=== PATIENT | female | born 1960 | race Caucasian/White ===

== ENCOUNTER 2018-07-26 05:27 | Inpatient (IN) | payer MEDICARE, OTHER ==
[2018-07-26] MEDS ORDERED: Celecoxib 200 MG Cap PO ONE (06:00)
[2018-07-26] MEDS ORDERED: Scopolamine 1.5 MG Transdermal Patch TOP SCH (06:00)
[2018-07-26] MEDS ORDERED: Gabapentin 300 MG Cap PO ONE (06:00)
[2018-07-26] MEDS ORDERED: Acetaminophen 500 MG Tab PO ONE (06:00)
[2018-07-26] MEDS ORDERED: cefOXitin 2 GM Vial ONE (06:53)
[2018-07-26] MEDS ORDERED: Dextrose 5%-Lactated Ringers 1,000 ML IV SCH (07:00)
[2018-07-26] MEDS ORDERED: Dexamethasone 4 MG/ML SDV ONE (07:08)
[2018-07-26] MEDS ORDERED: Glycopyrrolate 0.2 MG/ML 5 ML MDV ONE (07:08)
[2018-07-26] MEDS ORDERED: Succinylcholine 200 MG/10 ML MDV ONE (07:08)
[2018-07-26] MEDS ORDERED: Neostigmine Methylsulfate 1 MG/ML 5 ML Syringe ONE (07:08)
[2018-07-26] MEDS ORDERED: fentaNYL 250 MCG/5 ML SDV ONE ×2 (07:08→07:57)
[2018-07-26] MEDS ORDERED: Propofol 200 MG/20 ML SDV ONE (07:08)
[2018-07-26] MEDS ORDERED: Ondansetron 4 MG/2 ML SDV ONE (07:08)
[2018-07-26] MEDS ORDERED: Rocuronium 50 MG/5 ML Vial ONE (07:08)
[2018-07-26] MEDS ORDERED: Lactated Ringers 1,000 ML ONE (07:11)
[2018-07-26] MEDS: cefOXitin 2 GM in Sodium Chloride 0.9% 50 ML IV ONE ×2 (07:57→11:49)
[2018-07-26] MEDS ORDERED: Ketamine 50 MG in Sodium Chloride 0.9% 49.5 ML IV SCH (08:00)
[2018-07-26] MEDS ORDERED: Lidocaine 2% 100 MG/5 ML Syringe IVPUSH SCH (08:00)
[2018-07-26] MEDS ORDERED: Ketamine 500 MG/5 ML MDV IV SCH (08:00)
[2018-07-26] MEDS ORDERED: hydrOXYzine HCl 100 MG/2 ML SDV IM ONE (09:29)
[2018-07-26] MEDS: Lidocaine 0.4%/D5W 2 GM/500 ML BAG IV SCH (09:44)
[2018-07-26] MEDS ORDERED: fentaNYL 100 MCG/2 ML SDV IVPUSH ONE (09:50)
[2018-07-26] MEDS ORDERED: Acetaminophen Soln 650 MG/20.3 ML UD Cup PO SCH (11:33)
[2018-07-26] MEDS ORDERED: Metoclopramide 10 MG/2 ML SDV IVPUSH PRN (11:33)
[2018-07-26] MEDS ORDERED: Labetalol 20 MG/4 ML Syringe IVPUSH PRN (11:33)
[2018-07-26] MEDS ORDERED: Ondansetron 4 MG/2 ML SDV IVPUSH PRN (11:33)
[2018-07-26] MEDS ORDERED: diphenhydrAMINE 50 MG/ML SDV IVPUSH PRN (11:33)
[2018-07-26] MEDS ORDERED: hydrOXYzine HCl 100 MG/2 ML SDV IM PRN (11:33)
[2018-07-26] MEDS ORDERED: hydrOXYzine HCl 100 MG/2 ML SDV ONE (11:42)
[2018-07-26] MEDS: Acetaminophen Soln 650 MG/20.3 ML UD Cup PO SCH ×3 (11:53→23:43)
[2018-07-26] MEDS ORDERED: Pantoprazole 40 MG Vial IVPUSH SCH (12:00)
[2018-07-26] MEDS: Dextrose 5%-Lactated Ringers 1,000 ML IV SCH ×2 (12:58→22:05)
[2018-07-26] MEDS: Gabapentin 250 MG/5 ML Solution ML 470 ML Bottle PO SCH ×2 (13:59→20:34)
[2018-07-26] MEDS: cefOXitin 2 GM in Sodium Chloride 0.9% 50 ML IV SCH ×2 (14:00→20:34)
[2018-07-26] MEDS ORDERED: MVI, Adult with Vitamin K 10 ML, Thiamine 200 MG, Chromium/Copper/Mang/Selen/Zn 1 ML in... IV SCH ×4 (16:00)
[2018-07-26] MEDS: Heparin Sodium 5,000 Units/ML Vial SUBCUT SCH (18:14)
[2018-07-26] MEDS: rOPINIRole 1 MG Tab PO SCH ×2 (18:18→21:25)
[2018-07-26] MEDS: Venlafaxine 75 MG Tab PO SCH (20:38)
[2018-07-26] MEDS: lamoTRIgine 25 MG Tab PO SCH (20:39)
[2018-07-26] MEDS ORDERED: traZODone 50 MG Tab PO ONE (21:00)
[2018-07-26] MEDS ORDERED: Iohexol 647 MG/ML 50 ML SDV PO SCH (23:00)
[2018-07-27] MEDS: cefOXitin 2 GM in Sodium Chloride 0.9% 50 ML IV SCH ×2 (02:43→07:58)
--- NOTE | 2018-07-27 04:06 | CRLCR ---
INDICATION: Gastric bypass evaluation TECHNIQUE: Abdominal radiograph 2 views. Patient given oral contrast with no radiologist in attendance. COMPARISON: None FINDINGS: Bowel: Oral contrast is seen within the gastrojejunostomy head proximal small bowel loops. The right flank and lower pelvis are excluded. No contrast extravasation is seen on the 2 submitted static images. Soft tissue: No evidence of pneumoperitoneum present. No suspicious calcifications noted. A surgical drain is present in the left upper quadrant. The patient is status post prior cholecystectomy. Bone: Unremarkable for age. IMPRESSION: 1. No contrast extravasation is seen on the 2 submitted static images. Dictated by Migel Banks MD @ 07/27/2018 4:05:41 AM Dictated by: Migel Banks MD @ 07/27/2018 04:05:46 (Electronically Signed)
[2018-07-27] MEDS: Dextrose 5%-Lactated Ringers 1,000 ML IV SCH (04:12)
[2018-07-27] MEDS: Heparin Sodium 5,000 Units/ML Vial SUBCUT SCH ×2 (05:42→17:30)
[2018-07-27] MEDS: Acetaminophen Soln 650 MG/20.3 ML UD Cup PO SCH ×4 (05:42→23:05)
[2018-07-27] MEDS ORDERED: Ondansetron 4 MG Tab.DIS PO PRN (08:29)
[2018-07-27] MEDS ORDERED: Dextrose 5%-Lactated Ringers 1,000 ML IV SCH (08:30)
[2018-07-27] MEDS: Lidocaine 0.4%/D5W 2 GM/500 ML BAG IV SCH (08:53)
[2018-07-27] MEDS: Celecoxib 200 MG Cap PO SCH (08:53)
[2018-07-27] MEDS: Metoprolol Succinate 50 MG Tab.ER PO SCH (08:54)
[2018-07-27] MEDS: ALPRAZolam 0.25 MG Tab PO SCH (08:54)
[2018-07-27] MEDS: lamoTRIgine 100 MG Tab PO SCH (08:54)
[2018-07-27] MEDS: Venlafaxine 75 MG Tab PO SCH ×2 (08:54→20:15)
[2018-07-27] MEDS: ESCITALOPRAM PO SCH ×2 (08:57)
[2018-07-27] MEDS: Gabapentin 250 MG/5 ML Solution ML 470 ML Bottle PO SCH ×3 (08:57→20:14)
[2018-07-27] MEDS: rOPINIRole 1 MG Tab PO SCH ×2 (08:58→20:15)
[2018-07-27] MEDS: SCOPOLAMINE PATCH CHECK TOP SCH (08:59)
[2018-07-27] MEDS ORDERED: Escitalopram 10 MG Tab PO SCH (09:00)
[2018-07-27] MEDS ORDERED: Pantoprazole 40 MG Delayed-Release Granules 1 Packet PO SCH (11:30)
--- NOTE | 2018-07-27 11:44 | PN ---
DATE OF SERVICE: 07/27/2018 SUBJECTIVE: Fiona is postoperative day #1. Her upper GI this morning was normal. Oral intake 500, output 2900. DAMASO drain put out 90 mL of a light pink serosanguineous drainage. She has been up ambulating. Pain is controlled and vital signs have been stable. REVIEW OF SYSTEMS: Remainder of review of systems negative for any pertinent positives and negatives. OBJECTIVE: GENERAL: Fiona is a pleasant 58-year-old female. VITAL SIGNS: TPR is 97.3, 55, 18 and blood pressure 128/72. HEENT: Negative. NECK: Supple. HEART: Regular rate and rhythm. LUNGS: Clear. ABDOMEN: Dressings dry and intact. Abdominal binder is on and DAMASO drain intact as above. EXTREMITIES: Without peripheral edema. ASSESSMENT: Laparoscopic gastric bypass surgery, liver biopsy, excision of peritoneal nodules x3, repair of diaphragmatic hernia and excision of mediastinal lipoma for morbid obesity, hepatomegaly; peritoneal nodules x3, right upper quadrant abdominal wall, mid- omentum and gastric cardia; diaphragmatic hernia, and mediastinal lipoma. Date of surgery, 07/26/2018. Surgeon, Marcial Issa MD. PLAN: 1. Decrease IV to 100 mL per hour. 2. Step-2 gastric bypass diet without cereal. 3. Zofran 4 mg ODT one q.4 hours p.r.n. nausea. 4. Communication order, 3 med cups per hour, record at bedside. 5. Dressing off and may shower. 6. Good pulmonary toilet. 7. We will evaluate p.r.n. or in a.m. 8. Plan to discharge in a.m. Selina Matthew PA-C /[id number]
[2018-07-27] MEDS: lamoTRIgine 25 MG Tab PO SCH (20:16)
[2018-07-28] MEDS: Heparin Sodium 5,000 Units/ML Vial SUBCUT SCH (05:47)
[2018-07-28] MEDS: Celecoxib 200 MG Cap PO SCH (07:27)
[2018-07-28] MEDS: Acetaminophen Soln 650 MG/20.3 ML UD Cup PO SCH (07:27)
[2018-07-28] MEDS ORDERED: Cyanocobalamin (Vitamin B12) 1,000 MCG/ML SDV IM ONE (09:00)
[2018-07-28] MEDS: Venlafaxine 75 MG Tab PO SCH (09:08)
[2018-07-28] MEDS: ESCITALOPRAM PO SCH ×2 (09:08)
[2018-07-28] MEDS: Gabapentin 250 MG/5 ML Solution ML 470 ML Bottle PO SCH (09:08)
[2018-07-28] MEDS: lamoTRIgine 100 MG Tab PO SCH (09:08)
[2018-07-28] MEDS: rOPINIRole 1 MG Tab PO SCH (09:09)
[2018-07-28] MEDS: Metoprolol Succinate 50 MG Tab.ER PO SCH (09:09)
[2018-07-28] MEDS: ALPRAZolam 0.25 MG Tab PO SCH (09:49)
[2018-07-28] MEDS: SCOPOLAMINE PATCH CHECK TOP SCH (09:59)
[2018-07-28] MEDS ORDERED: Magnesium Hydroxide 400 MG/5 ML Susp 30 ML Cup PO PRN (11:19)
--- NOTE | 2018-07-30 09:50 | DISCH ---
FINAL DIAGNOSES: 1. Morbid obesity. 2. Hepatomegaly. 3. Peritoneal nodules x3. 4. Paraesophageal diaphragmatic hernia. 5. Mediastinal lipoma. 6. Osteoarthritis. 7. Gastroesophageal reflux disease. 8. Hyperlipidemia. 9. Restless legs syndrome. 10.Obstructive sleep apnea. 11.Posttraumatic stress disorder. OPERATIVE PROCEDURES: This was done on 07/26/2018, diagnostic laparoscopy with: 1. Laparoscopic Arnol-en-Y gastric bypass with long-limb gastroenterostomy. 2. Petr-Cut needle liver biopsy. 3. Excision of peritoneal nodule x3 (see operative report). 4. Repair of paraesophageal diaphragmatic hernia. 5. Excision of mediastinal lipoma. HOSPITAL COURSE: This 58-year-old female was presenting with longstanding morbid obesity and increasingly significant comorbidities. After preoperative evaluation and discussion, she wished to proceed with a gastric bypass procedure. This was done on the date of admission, and the patient concurrently had a needle liver biopsy for evaluation of hepatomegaly. She had peritoneal nodules involving the right upper quadrant abdominal wall, midportion of the omentum, and at the gastric cardia. These were probably benign granulomatous-type lesions related to her previous surgeries. Biopsies were obtained to establish a certain diagnosis. Also had an diaphragmatic hernia, which involved the mediastinal lipoma, which was repaired and excised concurrently. Postoperatively, the patient has done very well. No significant problems were noted. Pain control was satisfactory with Tylenol and Celebrex. She will be discharged home. She will be continuing her home medications with the exception of omeprazole and continue the Tylenol and Celebrex as needed for pain. Followup will be with Selina Matthew at [facility] on , 08/09/2018. She will remain on step-2 diet until that first appointment.
--- NOTE | 2018-07-31 11:36 | OR ---
DATE OF PROCEDURE: 07/26/2018 PREOPERATIVE DIAGNOSIS: Morbid obesity. POSTOPERATIVE DIAGNOSES: 1. Morbid obesity. 2. Marked hepatomegaly. 3. Peritoneal nodules involving right upper quadrant, anterior abdominal wall, midportion of omentum, and overlying gastric cardia. 4. Paraesophageal diaphragmatic hernia. 5. Mediastinal lipoma. OPERATIVE PROCEDURE: Diagnostic laparoscopy with: 1. Laparoscopic Arnol-en-Y gastric bypass with long limb gastroenterostomy (09204). 2. Petr-Cut needle liver biopsy (53031). 3. Excision of peritoneal nodule anterior abdominal wall and right upper quadrant (79205). 4. Excision of a peritoneal nodule over the midportion of omentum (64201). 5. Excision of peritoneal nodule overlying gastric cardia (96892). 6. Repair of paraesophageal diaphragmatic hernia (47585). 7. Excision of mediastinal lipoma (37016). ANESTHESIA: General. WIRE TWISTER: 1. Selina Matthew PA-C. 2. JUMA Jerez. INDICATION FOR PROCEDURE: This is a 58-year-old, presenting with longstanding morbid obesity and increasingly significant comorbidities. After preoperative evaluation and discussion, she wished to proceed with a Arnol-en-Y gastric bypass. Potential risks of the procedure, including bleeding, infection, leaks from various GI tract closures, problems with bowel obstruction over time as well as possibility of cardiopulmonary, septic, or hemorrhagic complications leading to were discussed, and the patient wishes to proceed. DETAILS OF PROCEDURE: The patient was taken to the operating room and placed in a supine position. After general endotracheal anesthesia was induced, she was converted to a lithotomy position and the abdomen prepped and draped. At 15 cm inferior and 5 cm left of xiphoid process, transverse incision was made and peritoneal cavity entered under direct vision with an Optiview trocar, inflated to 15 mmHg pressure with CO2. No trocar insertion site injuries were identified. Bilateral transversus abdominis plane blocks were then placed, and following this, 5 additional trocars were placed across the upper and mid abdomen. Initial evaluation showed marked hepatomegaly with liver being grossly fatty infiltrated and roughly 2 to 3 times normal size. Given this, Petr-Cut needle biopsy was obtained from left lobe of the liver. Minimal bleeding from the biopsy site was controlled with electrocautery. During the course of the inspection and as the procedure continued, 3 white nodular lesions were seen that probably were something like granulomas, i.e. benign, but to rule out these being anything malignant, each of these was excised. These measured from 1 to 4 mm in size and were located in the anterior abdominal wall, right upper quadrant, the anterior aspect of the midportion of the omentum, and then on inspection of the stomach later in the case, in the gastric cardia just below the esophagogastric junction. All these were excised and sent as separate specimens. At this point, the omentum was divided in the midline up to the level of the transverse colon. This allowed identification of small bowel to the ligament of Treitz. Small bowel was then traced out 200 cm distal to that point and divided transversely with the same stapler. The small bowel was then traced out additional 200 cm, where the [id number] enteroenterostomy was accomplished with internal firing of the Endo-KIANNA 60 mm stapler. Common opening was then closed transversely and the angles anastomosed and mesenteric defect approximated with some 0 Ethibond stitch, along with fibrin sealant. Divided end of the Arnol limb was then from the mesentery for a few centimeters, which allowed an antecolic position of the Arnol limb up to the gastroesophageal junction without tension. The liver was then retracted anteriorly and the above-mentioned nodule over the gastric cardia was then noted and excised. The patient had a moderate-sized paraesophageal diaphragmatic hernia with prolapse of portion of the gastric fundus and perigastric fat in a plane anterior to the course of the esophagus. The hernia was reduced and peritoneum overlying incised and reflected downward. During the course of the dissection, a mediastinal lipoma was encountered. To facilitate a more adequate repair, this was excised, and the anterior repair of the diaphragmatic hernia was accomplished with 0 Ethibond sutures, reinforced with PTFE pledgets. A gastrointestinal balloon catheter was then inflated to 15 mL, pulled up snuggly against the EG junction. Gastric wall over the apex balloon was then marked with electrocautery and balloon catheter deflated and pulled up from the esophagus. The lesser omental tissue adjacent to the gastric cardia was then incised, allowing dissection behind the stomach at that level. Pouch formation was then completed with firings of the KIANNA staplers initially at the level of the marked location in the gastric cardia and then up to and through the angle of His. Upon completion of the pouch, both staple lines were noted to be intact. The anvil of a 25 mm EEA stapler was attached to Grant sump type tube. The latter was brought down through the mouth, taken out through a small opening in the gastric pouch, allowing the anvil likewise to be pulled down to within the gastric pouch. The divided end of the Arnol limb was then opened, and main body of the EEA stapler passed several centimeters into the lumen of small bowel, brought up the anvil, united with it, thus creating the gastrojejunostomy. Upon removal of the stapler, double donuts of mucosa were noted within it. Small bowel was closed off with a vascular staple line. Gastrojejunostomy was then reinforced with some 3-0 Vicryl seromuscular stitch, along with fibrin sealant. Leak test was accomplished with injection of 120 mL of air in the gastric pouch while submerged with a cefoxitin-containing saline solution. No leaks were identified. A single Francisco-Alford drain was taken through the left lateral trocar site and positioned adjacent to the gastrojejunostomy, from there up into the area of the splenic fossa. The trocars were then sequentially removed and the peritoneal cavity deflated. Incisions were closed with 4-0 Vicryl skin stitch, which was also used to affix the drain, and the patient was taken to the recovery room in satisfactory condition. Physician roofer assistant, Selina Matthew, played an essential role in assisting in this case, helping to position the patient, retract structures as needed, as well as suturing and cutting sutures when indicated. Her presence improved patient safety and decreased operative time. Marcial Issa MD /[id number]
== END 2018-07-28 11:30 | disposition home or self-care (01) | DRG 621 ==
LOC: JP.SDSSCHI 05:27 → JP.SDS 05:29 → EDSTATUS 07:30 → JP.MS 09:20
PROVIDERS: ADMIT Surgery; ATTEND Surgery
PROC: 0D164ZA Bypass Stomach to Jejunum, Percutaneous Endoscopic Approach (ICD-10-PCS; principal; 2018-07-26)
PROC: 0WBF4ZZ Excision of Abdominal Wall, Percutaneous Endoscopic Approach (ICD-10-PCS; 2018-07-26)
PROC: 0FB24ZX Excision of Left Lobe Liver, Percutaneous Endoscopic Approach, Diagnostic (ICD-10-PCS; 2018-07-26)
PROC: 0DBU4ZZ Excision of Omentum, Percutaneous Endoscopic Approach (ICD-10-PCS; 2018-07-26)
PROC: 0BQT4ZZ Repair Diaphragm, Percutaneous Endoscopic Approach (ICD-10-PCS; 2018-07-26)
PROC: 0WBC4ZX Excision of Mediastinum, Percutaneous Endoscopic Approach, Diagnostic (ICD-10-PCS; 2018-07-26)
PROC: 0DB64ZZ Excision of Stomach, Percutaneous Endoscopic Approach (ICD-10-PCS; 2018-07-26)
PROC: 0DB84ZZ Excision of Small Intestine, Percutaneous Endoscopic Approach (ICD-10-PCS; 2018-07-26)
DX: E66.01 Morbid (severe) obesity due to excess calories (principal); Z68.41 Body mass index [BMI] 40.0-44.9, adult; K44.9 Diaphragmatic hernia without obstruction or gangrene; R16.0 Hepatomegaly, not elsewhere classified; D17.4 Benign lipomatous neoplasm of intrathoracic organs; K66.8 Other specified disorders of peritoneum; K31.89 Other diseases of stomach and duodenum; K76.0 Fatty (change of) liver, not elsewhere classified; I10 Essential (primary) hypertension; G47.33 Obstructive sleep apnea (adult) (pediatric); Z99.89 Dependence on other enabling machines and devices; K21.9 Gastro-esophageal reflux disease without esophagitis; F43.10 Post-traumatic stress disorder, unspecified; M19.90 Unspecified osteoarthritis, unspecified site; E78.2 Mixed hyperlipidemia; G25.81 Restless legs syndrome; H54.7 Unspecified visual loss; K58.9 Irritable bowel syndrome, unspecified; I72.8 Aneurysm of other specified arteries
CPT/HCPCS: 74240; 82962; 88304; 88305; 88307; 88313; 88341; 88342; A9270-GY; C9113; J0171; J0330; J0694; J1100; J1644; J2001; J2405; J2704; J2710; J2795; J3010; J3410; J3411; J3420; J3490; J7042; J7050; J7120; Q9967

== ENCOUNTER 2018-08-27 12:09 | Day surgery (SDC) | payer MEDICARE, OTHER ==
[~2018-08-27 12:09] MED LIST: Midazolam 1 MG/ML 2 ML SDV ONE; Propofol 200 MG/20 ML SDV ONE; fentaNYL 100 MCG/2 ML SDV ONE
[2018-08-27] MEDS ORDERED: Lactated Ringers 1,000 ML IV ONE (12:30)
[2018-08-27] MEDS ORDERED: Cyanocobalamin (Vitamin B12) 1,000 MCG/ML SDV IM ONE (12:47)
[2018-08-27] MEDS ORDERED: Glycopyrrolate 0.2 MG/ML 2 ML SDV IVPUSH ONE (12:48)
[2018-08-27] MEDS ORDERED: MVI, Adult with Vitamin K 10 ML, Thiamine 200 MG, Chromium/Copper/Mang/Selen/Zn 1 ML in... IV ONE ×4 (13:30)
[2018-08-27] MEDS ORDERED: Dexamethasone 4 MG/ML SDV ONE (13:48)
--- NOTE | 2018-08-29 13:02 | OR ---
DATE OF PROCEDURE: 08/27/2018 PREOPERATIVE DIAGNOSIS: Probable stricture at gastrojejunostomy. POSTOPERATIVE DIAGNOSIS: Mild stricture at gastrojejunostomy. PROCEDURE: Upper GI endoscopy with dilation of gastrojejunostomy (52047). ANESTHESIA: IV sedation. INDICATION: The patient is now a little over a month, status post a Arnol-en-Y gastric bypass, presenting with ongoing symptoms suggestive of stricturing at her gastrojejunostomy. Plan is to proceed with upper GI endoscopy with dilation as indicated. Potential risks including bleeding and perforation were discussed, and the patient wishes to proceed. DESCRIPTION OF PROCEDURE: The patient was taken to the operating room and placed in a left lateral decubitus position. IV sedation was administered after which the upper GI endoscope was passed orally through the length of the esophagus and into the gastric pouch. At the gastrojejunostomy, the patient noted to have no retained food or fluid. There appeared to have moderate stricture, and the scope could almost be passed through the anastomosis, but not quite. A Bard gastrointestinal catheter was centered across the anastomosis and inflated to three 6-B[place] size. This was held in position for 1 minute after which balloon catheter was deflated and withdrawn. There were no other complications. Satisfactory dilation appeared to be completed. Scope was then withdrawn and the procedure then concluded. The patient had been started on Levsin over the weekend and did feel some improvement with that. I suspect given the relatively mild degree of stricturing, some of her symptoms may be esophageal spasm continue that. Otherwise, she will be following with Selina Matthew in roughly 2 weeks, and she is encouraged at that time if she feels she needs another dilation, she should come n.p.o. with a local owner operator truck driver. Marcial Issa MD /[id number]
== END 2018-08-27 15:49 | disposition home or self-care (01) ==
LOC: JP.SDS 12:09
PROVIDERS: ATTEND Surgery
DX: K91.89 Other postprocedural complications and disorders of digestive system (principal); G47.33 Obstructive sleep apnea (adult) (pediatric); I10 Essential (primary) hypertension; F43.10 Post-traumatic stress disorder, unspecified; Z88.5 Allergy status to narcotic agent; Z88.2 Allergy status to sulfonamides; Z91.018 Allergy to other foods
CPT/HCPCS: 43245; J1100; J2250; J2704; J3010; J3411; J3420; J3490; J7120

== ENCOUNTER 2018-11-14 11:04 | Day surgery (SDC) | payer MEDICARE, OTHER ==
[~2018-11-14 11:04] MED LIST changes: +Lactated Ringers 1,000 ML IV SCH; -Midazolam 1 MG/ML 2 ML SDV ONE; -Propofol 200 MG/20 ML SDV ONE; -fentaNYL 100 MCG/2 ML SDV ONE
[2018-11-14] MEDS ORDERED: fentaNYL 100 MCG/2 ML SDV ONE (11:15)
[2018-11-14] MEDS ORDERED: Propofol 200 MG/20 ML SDV ONE (11:15)
[2018-11-14] MEDS ORDERED: Midazolam 1 MG/ML 2 ML SDV ONE (11:15)
[2018-11-14] MEDS ORDERED: Cyanocobalamin (Vitamin B12) 1,000 MCG/ML SDV IM ONE (11:30)
[2018-11-14] MEDS ORDERED: Glycopyrrolate 0.2 MG/ML 2 ML SDV IVPUSH ONE (11:30)
[2018-11-14] MEDS: Ondansetron 4 MG/2 ML SDV IVPUSH SCH (11:43)
[2018-11-14] MEDS ORDERED: MVI, Adult with Vitamin K 10 ML, Thiamine 200 MG, Chromium/Copper/Mang/Selen/Zn 1 ML in... IV ONE ×4 (12:00)
[2018-11-14] MEDS ORDERED: Dexamethasone 4 MG/ML SDV ONE (12:05)
[2018-11-14] MEDS ORDERED: Pantoprazole 40 MG Vial IVPUSH ONE (12:21)
[2018-11-14] MEDS ORDERED: Alum Hydrox/Mag Hydrox/Simeth 360 ML, Lidocaine 2% 60 ML PO SCH ×2 (16:00)
--- NOTE | 2018-12-13 13:09 | OR ---
DATE OF PROCEDURE: 11/14/2018 SURGEON: Marcial Issa MD PREOPERATIVE DIAGNOSIS: Epigastric pain and dysphagia, status post Arnol-en-Y gastric bypass. POSTOPERATIVE DIAGNOSIS: Ulcerated gastric pouch and esophagogastric junction. OPERATIVE PROCEDURE: Upper GI endoscopy. ANESTHESIA: IV sedation. INDICATIONS FOR PROCEDURE: This is a 58-year-old status post Arnol-en-Y gastric bypass. The patient has some increasing problems with dysphagia recently. Plan is to proceed with an upper GI endoscopy with biopsies and/or dilation as indicated. Potential risks including bleeding and perforation were discussed, and the patient wishes to proceed. DETAILS OF PROCEDURE: The patient was taken to the operating room and placed in a left lateral decubitus position. IV sedation was administered, after which the upper GI endoscope was passed orally through the length of the esophagus and into the gastric pouch, from there through the gastrojejunostomy roughly 20 cm into the Arnol limb. Findings included normal hypopharynx, larynx, upper esophageal sphincter, and esophageal body. At the EG junction, and from that point towards the gastrojejunostomy, the gastric pouch and gastrojejunostomy itself were quite reddened, and several small focal laryngeal ulcers were present. There was no stricturing, and the scope easily passed through the gastrojejunostomy, beyond that into the Arnol limb, and there were no abnormalities noted. At this point, the scope was then withdrawn. Procedure was then concluded. We will intensify the patient's medical management at this point, adding some additional Mylanta and Xylocaine to aid in the symptom control and otherwise continue the proton pump inhibitors. Marcial Issa MD /[id number]
== END 2018-11-14 14:24 | disposition home or self-care (01) ==
LOC: JP.SDS 11:04
PROVIDERS: ATTEND Surgery
DX: K31.4 Gastric diverticulum (principal); K22.10 Ulcer of esophagus without bleeding; Z98.84 Bariatric surgery status
CPT/HCPCS: 43235; A9270; C9113; J1100; J2250; J2405; J2704; J3010; J3411; J3420; J3490; J7120

== ENCOUNTER 2019-09-10 06:35 | Day surgery (SDC) | payer MEDICARE, OTHER ==
[2019-09-10] MEDS ORDERED: Propofol 200 MG/20 ML SDV ONE (07:05)
[2019-09-10] MEDS ORDERED: fentaNYL 100 MCG/2 ML SDV ONE (07:06)
[2019-09-10] MEDS ORDERED: Midazolam 1 MG/ML 2 ML SDV ONE (07:06)
[2019-09-10] MEDS ORDERED: Cyanocobalamin (Vitamin B12) 1,000 MCG/ML SDV IM ONE (07:15)
[2019-09-10] MEDS ORDERED: Lactated Ringers 1,000 ML IV ONE (07:15)
[2019-09-10] MEDS ORDERED: Glycopyrrolate 0.2 MG/ML 2 ML SDV IVPUSH ONE (08:00)
[2019-09-10] MEDS ORDERED: MVI, Adult with Vitamin K 10 ML, Thiamine 200 MG, Chromium/Copper/Mang/Selen/Zn 1 ML in... IV ONE ×4 (08:15)
[2019-09-10] MEDS ORDERED: LIDOCAINE PO PRN ×2 (09:22)
[2019-09-10] MEDS ORDERED: SIMETHICONE PO PRN ×2 (09:22)
[2019-09-10] MEDS ORDERED: ALUMINUM HYDROXIDE PO PRN ×2 (09:22)
[2019-09-10] MEDS ORDERED: MAGNESIUM HYDROXIDE PO PRN ×2 (09:22)
[2019-09-11 18:11] LABS: H. PYLORI BREATH TEST Negative (Negative)
--- NOTE | 2019-09-16 13:46 | OR ---
DATE OF PROCEDURE: 09/10/2019 SURGEON: Marcial Issa MD PREOPERATIVE DIAGNOSIS: Dysphagia status post Arnol-en-Y gastric bypass. POSTOPERATIVE DIAGNOSIS: Dysphagia status post Arnol-en-Y gastric bypass with normal upper gastrointestinal endoscopic examination. OPERATIVE PROCEDURE: Upper GI endoscopy (44632). ANESTHESIA: IV sedation. INDICATION FOR PROCEDURE: The patient is status post a Arnol-en-Y gastric bypass, presenting with some ongoing dysphagia referable to mid and distal esophagus. The plan is to proceed with upper GI endoscopy with biopsies and/or dilation as indicated. Potential risks including bleeding and perforation were discussed, and the patient wishes to proceed. DETAILS OF PROCEDURE: The patient was taken to the operating room and placed in a left lateral decubitus position. IV sedation was administered, after which the upper GI endoscope was passed orally through the length of the esophagus into the gastric pouch, from there through the gastrojejunostomy roughly 20 cm into the Arnol limb. Overall, the examination was entirely normal. There were no areas of significant mucosal inflammation and no areas of stricturing. The scope was then withdrawn. The above findings reconfirmed. I suspect the patient may have some underlying sense of discomfort, possibly related to some acid production at the EG junction, which was not resulting in visible gastritis or inflammation of the gastrojejunostomy. The patient may also be experiencing some esophageal spasm in terms of the dysphagia. Given this we will do an H. pylori breath test before discharge, and she will be given a prescription for Xylocaine 2 ounces in 12 ounces of Mylanta, to take 1 to 2 tablespoons before meals. Additionally, the patient will be instructed to use Levsin more liberally. She does have a history of taking this in the past, and followup will be with a virtual appointment with Selina Matthew in roughly one month. Marcial Issa MD /[id number] [facility]ITAL[facility]ie
== END 2019-09-10 11:01 | disposition home or self-care (01) ==
LOC: JP.SDS 06:35
PROVIDERS: ATTEND Surgery
DX: R13.10 Dysphagia, unspecified (principal); G47.33 Obstructive sleep apnea (adult) (pediatric); I10 Essential (primary) hypertension; Z98.84 Bariatric surgery status
CPT/HCPCS: 43235; 83013; A9270; J2250; J2704; J3010; J3411; J3420; J3490; J7120